=== PATIENT | female | born 1980 | race Caucasian/White ===

== ENCOUNTER 2018-04-29 07:39 | Day surgery (SDC) | payer BC ==
[2018-04-28 14:51] VITALS: BMI 31.5
[2018-04-29] MEDS ORDERED: CEFAZOLIN 2 GM/50 ML BAG ONE (08:01)
[2018-04-29] MEDS ORDERED: Midazolam HCl 2 mg/2 ml Vial ONE (08:29)
[2018-04-29] MEDS ORDERED: Dexamethasone 4 mg/ml Vial ONE (08:30)
[2018-04-29] MEDS ORDERED: Fentanyl 100 MCG/2 ML VIAL ONE ×2 (08:30→09:53)
[2018-04-29 08:31] LABS: #Basophils 0.1 thou/uL (0.0-0.2); #Eosinphils 0.3 thou/uL (0.0-0.7); #Lymphocytes 2.4 thou/uL (1.20-3.40); #Monocytes 0.4 thou/uL (0.11-0.59); #Neutrophils 2.7 thou/uL (1.40-6.50); %Basophils 1.3 % (0.0-1.0); %Eosinophils 4.8 % (0.0-10.0); %Lymphocytes 40.9 % (21.0-51.0); %Monocytes 6.8 % (0.0-10.0); %Neutrophils 46.3 % (42.0-75.0); Hemoglobin 14.6 g/dL (12.0-16.0); Mean Corpuscular HGB CONC 33.1 g/dL (32.0-36.0); Mean Corpuscular Hemoglobin 30.8 pg (27.0-31.0); Mean Corpuscular Volume 93.1 fL (78.0-98.0); Mean Platelet Volume 6.9 fL (7.4-10.4); Platelet Count 287 thou/uL (130-400); RBC Distribution Width 10.7 % (11.5-14.5); Red Blood Cell (RBC) Count 4.76 mill/uL (4.20-5.40); White Blood Cell (WBC) Count 5.8 thou/uL (4.8-10.8)
--- NOTE | 2018-04-29 12:06 | OP ---
DATE OF PROCEDURE: 04/29/2018 PREOPERATIVE DIAGNOSIS: Grade 3 MCL injury of the femur with an injury to both ACL and PCL, both of these are partial injury. POSTOPERATIVE DIAGNOSIS: Grade 3 MCL injury of the femur with an injury to both ACL and PCL, both of these are partial injury. PROCEDURES PERFORMED: 1. Exam under anesthesia, right lower extremity. 2. Open repair of medial collateral ligament to the femur using a screw and washer construct. DISPOSITION: She did go to recovery in stable condition. INDICATIONS: This is a 37-year-old female, who about two weeks ago injured her knee while skiing. She was found to have injury including the MCL, PCL, and ACL. At this time, she is here for MCL repair. DESCRIPTION OF PROCEDURE: After all consent forms were explained and signed, she was taken to the operative time and at this time was given general anesthetic. Once the level of anesthesia was appropriate, exam under anesthesia was performed of the right leg. Upon testing the MCL, the knee completely booked open and it did not matter if it was in flexion or full extension. She did have an endpoint on our Alisia exam and the patient did have what I would describe as 1 to 2+ posterior drawer with a pretty good endpoint at this time. Therefore, I was convinced that we are going to try and treat the PCL for sure nonoperatively, fixed the MCL, and hopefully will have enough stability from the partial ACL once that heals, that she will not need any further ligamentous reconstruction. At this time, a tourniquet was placed on the right thigh and the leg was then prepped and draped in standard surgical fashion. The limb was exsanguinated and tourniquet taken up to 300 mmHg. An oblique incision was made in the femur down to the joint line down through skin. Bovie was used to coagulate any brisk venous bleeding. We then opened our top fascial layer and we were able to notice a bulge underneath this and by just sticking hemostatic there, bloody fluid was egressed and we were able to develop this plane and find the medial collateral ligament and soft tissue and where it pulled off the femoral bone. At this time, this area was cleaned and roughened up. We then drilled a hole and pulled our tissue up, made a small vertical incision in the tissue so that the screw could pass through this and while holding the tissue, varus stress being applied to the leg. We then tightened the screw and soft tissue washer construct down. This gave us excellent fixation. We then used a couple of Ethibond sutures to place some interrupted sutures from the soft tissues to the tissue surrounding it. We then thoroughly irrigated and dried. We then closed our fascial layer. We then used some 2-0 Vicryl and a running Stratafix and Surgicel to close the skin. Once this had dried, a bulky sterile dressing was applied. The patient was then placed in the knee immobilizer in full extension. At this time, she was awakened, she was taken to the recovery room in stable condition. All counts correct at the end of the case and she did receive preoperative IV antibiotics. Job ID: [id number]
== END 2018-04-29 13:30 | disposition home or self-care (01) ==
LOC: SDC 07:39
PROVIDERS: ATTEND Orthopaedic Surgery
PROC: 0MQN0ZZ Repair Right Knee Bursa and Ligament, Open Approach (ICD-10-PCS; principal; 2018-04-29)
DX: S83.411A Sprain of medial collateral ligament of right knee, initial encounter (principal); S83.511A Sprain of anterior cruciate ligament of right knee, initial encounter; S83.521A Sprain of posterior cruciate ligament of right knee, initial encounter; Z87.891 Personal history of nicotine dependence; Z79.899 Other long term (current) drug therapy; Y93.23 Activity, snow (alpine) (downhill) skiing, snowboarding, sledding, tobogganing and snow tubing
CPT/HCPCS: 36415; 85025; 93005; 93010; J1100; J2250; J3010; L1830

== ENCOUNTER 2022-03-26 13:33 | Outpatient (CLI) | payer OTHER | END 2022-03-26 13:34 | disposition home or self-care (01) | LOC: BICMAMMO 13:33 | PROVIDERS: ATTEND Obstetrics & Gynecology | DX: N63.22 Unspecified lump in the left breast, upper inner quadrant (principal) | CPT/HCPCS: G0279 ==